=== PATIENT | female | born 1970 | race Caucasian/White ===

== ENCOUNTER → 2016-05-16 | Outpatient (CLI) | payer OTHER | END | disposition home or self-care (01) | LOC: CFH 15:44 | PROVIDERS: ATTEND Family Medicine | DX: Z12.31 Encounter for screening mammogram for malignant neoplasm of breast (principal); R05 Cough; F17.200 Nicotine dependence, unspecified, uncomplicated | CPT/HCPCS: 71020; G0202 ==

== ENCOUNTER 2020-09-04 10:38 | Emergency (ER) | payer OTHER ==
[~2020-09-04] VITALS: Ht 154.9 cm; Wt 69.0 kg
[2020-09-04 11:20] LABS: BASOPHILS % (AUTO) 1 % (0-1); EOSINOPHILS % (AUTO) 0 % (1-7); LYMPHOCYTES % (AUTO) 15 % (22-44); MEAN CORPUSCULAR HEMOGLOBIN 34.2 pg (27.0-34.8); MEAN CORPUSCULAR HGB CONC 34.2 g/dL (32.4-35.8); MEAN PLATELET VOLUME 8.1 fL (7.4-10.4); MONOCYTES % (AUTO) 6 % (2-9); NEUTROPHILS % (AUTO) 78 % (42-75); PLATELET COUNT 269 x10^3/uL (130-400); RED BLOOD COUNT 4.45 x10^6/uL (3.82-5.3); RED CELL DISTRIBUTION WIDTH 13.7 % (9.6-15.2)
--- NOTE | 2020-09-04 11:25 | NUR ---
PT MEDICATED PER ERP ORDER FOR ANXIOUSNESS. VSS/UPDATED IN COMPUTER. CALL LIGHT WITHIN REACH.
[2020-09-04 11:29] LABS: ALBUMIN 3.7 g/dL (3.4-5.0); ANION GAP 5 mmol/L (5-15); CHLORIDE 107 mmol/L (98-107)
[2020-09-04 11:33] LABS: ALANINE AMINOTRANSFERASE 49 U/L (12-78); ALKALINE PHOSPHATASE 89 U/L (45-117); BILIRUBIN,TOTAL 0.9 mg/dL (0.2-1.0); TOTAL PROTEIN 7.3 g/dL (6.4-8.2); TROPONIN I < 0.015 ng/mL (0.000-0.045)
[2020-09-04 12:48] VITALS: BP 123/67
--- NOTE | 2020-09-04 12:51 | NUR ---
PT FEELING MORE RELAXED, NO PALPITATIONS AFTER XANAX. VSS, PT DISCHARGED HOME.
== END 2020-09-04 12:52 | disposition home or self-care (01) ==
LOC: ED 12:03
DX: R00.2 Palpitations (principal); R07.2 Precordial pain
CPT/HCPCS: 36415; 80053; 83735; 84443; 84484; 85025; 93005; 99284